=== PATIENT | female | born 1960 | race African-American/Black ===

== ENCOUNTER 2024-08-26 04:37 | Emergency (ER) | payer MEDICAID ==
[~2024-08-26] VITALS: Ht 165.1 cm; Wt 70.0 kg
[2024-08-26 04:45] VITALS: BP 162/102; PULSE 84; RESP 19; TEMP 99; O2SAT 98
[2024-08-26] MEDS ORDERED: IBUP-2029 MT (06:27)
== END 2024-08-26 07:09 | disposition home or self-care (01) ==
LOC: ER 04:37
DX: S20.219A Contusion of unspecified front wall of thorax, initial encounter (principal); J44.9 Chronic obstructive pulmonary disease, unspecified; I10 Essential (primary) hypertension; Y04.0XXA Assault by unarmed brawl or fight, initial encounter; Y93.89 Activity, other specified; Y92.89 Other specified places as the place of occurrence of the external cause; Y99.8 Other external cause status
CPT/HCPCS: 71045; 99283

== ENCOUNTER 2024-08-26 07:15 | Emergency (ER) | payer MEDICAID ==
[~2024-08-26] VITALS: Ht 170.2 cm; Wt 61.0 kg
[~2024-08-26 07:15] MED LIST: IBUP-2029 MT
[2024-08-26 07:58] VITALS: BP 155/88; PULSE 88; RESP 16; TEMP 98.3; O2SAT 100
== END 2024-08-26 10:24 | disposition left against medical advice (07) ==
LOC: ER 07:28
DX: R51.9 Headache, unspecified (principal); Z53.21 Procedure and treatment not carried out due to patient leaving prior to being seen by health care provider

== ENCOUNTER 2024-08-26 10:28 | Emergency (ER) | payer MEDICAID ==
[~2024-08-26] VITALS: Ht 160 cm; Wt 64.0 kg
[2024-08-26 10:35] VITALS: BP 124/80; PULSE 70; RESP 16; TEMP 98.3; O2SAT 100
== END 2024-08-26 15:51 | disposition left against medical advice (07) ==
LOC: ER 14:46
DX: M54.9 Dorsalgia, unspecified (principal); Z53.21 Procedure and treatment not carried out due to patient leaving prior to being seen by health care provider